=== PATIENT | male | born 1980 | race African-American/Black ===

== ENCOUNTER 2025-06-06 09:40 | Outpatient (CLI) | payer OTHER, SELFPAY ==
--- NOTE | ~2025-06-06 | MR_ITS ---
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 There is moderate to severe osteophytic. Degenerative changes at the remaining articulating portion of the talonavicular joint. The navicular cuneiform articulations are very poorly defined due to degree of navicular fragmentation and deformity. Moderately severe osteophytic degenerative changes at the calcaneocuboid joint with erosive changes developing in the cuboid bone and mild bone marrow changes. Tibiotalar and talofibular articulations appear within normal limits. There is diffuse thickening of the flexor and peroneal tendons on the medial and lateral aspects of the ankle respectively. Small amount of fluid also present loculated along the posterior ankle, and slightly larger effusion/fluid attenuation anteriorly at the tibiotalar joint. Visualized Achilles tendon appears intact. Moderate infiltrative changes in the subcutaneous soft tissues. No drainable fluid collection or gross evidence of osteomyelitis. No acute appearing fracture seen. IMPRESSION: 1. Extensive fragmentation of the navicular bone with probably severe osteoarthritic degenerative changes at the navicular cuneiform articulations; milder but advanced degenerative changes are present at the talonavicular, calcaneal cuboidal, and tarsometatarsal articulations. 2. Mild diffuse thickening in the prone tendons and the tenderness along the medial aspect of the endotracheal with no discrete tear or signal abnormality may be associated with chronic inflammation. 3. Diffuse edematous changes in the soft tissues likely chronic; correlate clinically to exclude active inflammation or infection. Reviewed, dictated and finalized at location A. RAFT MECH[employer]IC IMPRESSION: 1. Extensive fragmentation of the navicular bone with probably severe osteoart hritic degenerative changes at the navicular cuneiform articulations; milder bu t advanced degenerative changes are present at the talonavicular, calcaneal cub oidal, and tarsometatarsal articulations. 2. Mild diffuse thickening in the prone tendons and the tenderness along the me dial aspect of the endotracheal with no discrete tear or signal abnormality may be associated with chronic inflammation. 3. Diffuse edematous changes in the soft tissues likely chronic; correlate clin ically to exclude active inflammation or infection.
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
== END 2025-06-06 09:41 | disposition home or self-care (01) ==
LOC: GOSHIMG 09:41
PROVIDERS: PCP Physician Assistant Surgical; Visit Provider Physician Assistant Surgical
DX: M19.171 Post-traumatic osteoarthritis, right ankle and foot (principal)
CPT/HCPCS: 73620; 73718; 73721